=== PATIENT | female | born 1980 | race Two or more races ===

== ENCOUNTER 2020-10-23 08:44 | Emergency (ER) | payer OTHER ==
[~2020-10-23] VITALS: Ht 162.6 cm; Wt 63.5 kg
[~2020-10-23 08:44] MED LIST: OSEL75CA PO; TUSSI PRES-B L120 M1 PO; ZANTAC150 MG
[2020-10-23] MEDS ORDERED: ORPHENADRINE C100 MG PO (15:06)
[2020-10-23] MEDS ORDERED: KETO10TA2 PO (15:06)
== END 2020-10-23 15:16 | disposition home or self-care (01) ==
LOC: ER 08:44
DX: S13.4XXA Sprain of ligaments of cervical spine, initial encounter (principal); S30.1XXA Contusion of abdominal wall, initial encounter; S20.213A Contusion of bilateral front wall of thorax, initial encounter; V49.9XXA Car occupant (driver) (passenger) injured in unspecified traffic accident, initial encounter; Y93.89 Activity, other specified; Y92.488 Other paved roadways as the place of occurrence of the external cause; Y99.8 Other external cause status

== ENCOUNTER 2024-11-06 08:26 | Outpatient (CLI) | payer OTHER ==
[~2024-11-06 08:26] MED LIST changes: +KETO10TA2 PO; +ORPHENADRINE C100 MG PO
== END 2024-11-06 08:33 | disposition home or self-care (01) ==
LOC: SONOGRAMA 08:26
PROVIDERS: ATTEND Specialist
DX: E04.1 Nontoxic single thyroid nodule (principal)

== ENCOUNTER 2025-02-01 10:15 | Emergency (ER) | payer OTHER ==
[~2025-02-01] VITALS: Ht 162.6 cm; Wt 63.5 kg
[2025-02-01] MEDS ORDERED: 0.9 % SODIUM CHLORIDE 250 ML IV SCH (11:00)
[2025-02-01 11:40] LABS: BASO % 0.3 % (0.1-1.2); EOS # 0.05 (0.04-0.54); EOS % 0.6 % (0.7-7.0); LYMPH # 0.32 (1.18-3.74); LYMPH % 3.6 % (19.3-53.1); MEAN PLATELET VOLUME 8.30 fl (9.4-12.4); MONO # 0.17 (0.24-0.82); MONO % 1.9 % (4.7-12.5); NEUT # 8.36 (1.56-6.13); NEUT % 93.0 % (34.0-71.1); RED CELL DISTRIBUTION WIDTH 13.8 % (11.6-14.4)
[2025-02-01 11:47] LABS: BUN CREA RATIO 17.0 (7.0-25.0); CREATININE SERUM 0.71 mg/dL (0.55-1.02); GFR 89.85; GLUCOSE FASTING 87.0 mg/dL (65-100); OSMOLALITY SERUM 279.0 MOSM/KG (275-295)
[2025-02-01] MEDS ORDERED: HYOSCYAMINE SULFATE 0.125 MG TAB.SUBL SL ONE (15:00)
[2025-02-01] MEDS ORDERED: MAG HYDROX/ALUMINUM HYD/SIMETH 30 ML BLIST.PACK PO ONE ×2 (15:00→15:15)
[2025-02-01] MEDS ORDERED: FAMOTIDINE/PF 20 MG/2 ML VIAL IV PUSH ONE (15:00)
[2025-02-01] MEDS ORDERED: FAMOTIDINE/PF 20 MG/2 ML VIAL ONE (15:15)
[2025-02-01] MEDS ORDERED: HYOSCYAMINE SULFATE 0.125 MG TAB.SUBL ONE (15:15)
[2025-02-01] MEDS ORDERED: ONDANSETRON HCL 2 MG/ML VIAL ONE ×3 (17:12→17:13)
[2025-02-01] MEDS ORDERED: ONDANSETRON HCL 2 MG/ML VIAL IV ONE (17:15)
== END 2025-02-01 17:26 | disposition home or self-care (01) ==
LOC: ER 10:15
PROVIDERS: Emergency Medicine
DX: K29.70 Gastritis, unspecified, without bleeding (principal)